=== PATIENT | female | born 1960 | race African-American/Black ===

== ENCOUNTER 2017-08-10 16:24 | Emergency (ER) | payer BC ==
[2017-08-10 17:25] VITALS: BP 00/00
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
--- NOTE | 2017-08-11 08:03 | Diagnostic Imaging Report ---
Exam: Cervical spine x-ray HISTORY pain. Findings: Multiple views of cervical spine reviewed. The study demonstrates no evidence for acute fracture dislocation. Degenerative changes are noted throughout the body of the C5 cervical vertebra with osteophytic spurring and narrowing of the C5-C6 intervertebral disc space. There is evidence for narrowing C6-C7 intervertebral disc space The odontoid process is intact. No prevertebral soft tissue swelling is noted. IMPRESSION: Degenerative changes of the C5 cervical vertebra, osteophytic spurring, degenerative narrowing of the intervertebral disc spaces at the C5-C6 C6-C7 intervertebral disc spaces.
== END 2017-08-10 19:28 | disposition home or self-care (01) ==
LOC: ER 16:24
DX: S16.1XXA Strain of muscle, fascia and tendon at neck level, initial encounter (principal); I10 Essential (primary) hypertension; E78.5 Hyperlipidemia, unspecified; S80.02XA Contusion of left knee, initial encounter; S80.01XA Contusion of right knee, initial encounter; R51 Headache; V89.2XXA Person injured in unspecified motor-vehicle accident, traffic, initial encounter; Y93.89 Activity, other specified; Y92.488 Other paved roadways as the place of occurrence of the external cause; Y99.8 Other external cause status
CPT/HCPCS: 72050-TC; Z7502; Z7610